=== PATIENT | male | born 1945 | race Caucasian/White ===

== ENCOUNTER 2020-12-01 15:34 | Emergency (ER) | payer MEDICARE ==
[~2020-12-01 15:34] MED LIST: ASPI81TA85 PO; AUGM12SS PO; BACT800T5 PO; EXCETAB80 PO; LORTTAB5 PO; [UNRECOGNIZED DRUG - OTHER]
[2020-12-01] MEDS ORDERED: EPINEPHrine 1MG/10ML SYRINGE 1.5IN ONE (15:35)
[2020-12-01] MEDS ORDERED: PROPOFOL 1,000 MG/100 ML VIAL As Ordered ONE (15:46)
[2020-12-01] MEDS ORDERED: LIDOCAINE 2% 5ML JELLY UROJET TOP ONE (15:55)
[2020-12-01] MEDS ORDERED: propofoL 1,000 MG in IV 1 EA IV SCH ×2 (15:55→16:15)
[2020-12-01] MEDS ORDERED: AMIODARONE HCL 360 MG in IV 1 EA IV SCH (15:55)
[2020-12-01] MEDS ORDERED: propofoL 200 MG/20 ML VIAL IV ONE (15:55)
[2020-12-01] MEDS ORDERED: ETOMIDATE INJ 20MG/10ML VIAL IV ONE (15:55)
[2020-12-01] MEDS ORDERED: SUCCINYLCHOLINE INJ 200 MG/10 ML VIAL (J0330) IV ONE (15:55)
[2020-12-01] MEDS ORDERED: fentaNYL CITRATE 1,000 MCG in NS 80 ML IV SCH (16:15)
[2020-12-01 16:23] LABS: HEMATOCRIT 50.8 % (42.0-52.0); HEMOGLOBIN 15.3 g/dl (13.5-17.5); MEAN CORPUSCULAR HEMOGLOBIN 32.2 pg (27.0-33.0); MEAN CORPUSCULAR HGB CONC 30.1 g/dl (32.0-36.5); MEAN CORPUSCULAR VOLUME 106.9 fl (80.0-96.0); PLATELET COUNT, AUTOMATED 176 10^3/uL (150-450); RED BLOOD COUNT 4.75 10^6/uL (4.30-6.10); WHITE BLOOD COUNT 9.2 10^3/uL (4.0-10.0)
--- NOTE | 2020-12-01 16:24 | REP ---
INDICATION: ett adjustment. COMPARISON: 12/01/2020 3:49 p.m.. TECHNIQUE: Single portable AP view of the chest was performed. FINDINGS: Bibasilar parenchymal opacities are stable. The heart and mediastinum are unchanged. Nasogastric tube is seen with side port in the fundus of the stomach. Endotracheal tube is unchanged in position with the tip at the inferior margin of the clavicular heads. IMPRESSION: Stable lungs. Endotracheal tube and nasogastric tube as above. <Electronically signed by Richard Rosas > 12/01/20 [id number]
--- NOTE | 2020-12-01 16:26 | REP ---
INDICATION: CHEST PAIN. COMPARISON: 04/28/2012. TECHNIQUE: Single portable AP view of the chest was performed. FINDINGS: There is right basilar consolidation. I suspect mild interstitial infiltrate in the left base. There is a prominent right hilar shadow. The heart is upper limits of normal. Endotracheal tube is seen with the tip at the inferior margin of the clavicular heads, approximately 4 cm above the ata. Nasogastric tube traverses into the stomach. IMPRESSION: Right basilar consolidation. Possible right hilar adenopathy. Possible interstitial infiltrate left lung base. Endotracheal tube and nasogastric tube as above. <Electronically signed by Richard Rosas > 12/01/20 [id number]
[2020-12-01 16:34] LABS: INR 1.11; PROTHROMBIN TIME 14.7 SECONDS (12.7-14.5)
[2020-12-01 16:35] LABS: PARTIAL THROMBOPLASTIN TIME 44.5 SECONDS (25.9-37.0)
[2020-12-01] MEDS ORDERED: LevoFLOXacin IV 750 MG in IV 1 EA IV ONE (16:40)
[2020-12-01] MEDS ORDERED: NS 500 ML IV ONE (16:50)
[2020-12-01] MEDS ORDERED: MIDAZOLAM HCL 50 MG in D5W 40 ML IV SCH (16:55)
[2020-12-01 16:59] LABS: ATYPICAL LYMPH 9 % (0-5); BASOPHILS 1 % (0-1); EOSINOPHILS 1 % (0-3); LYMPHOCYTES 41 % (16-44); MONOCYTES 5 % (0-5); NEUTROPHILS 41 % (28-66)
[2020-12-01 17:00] LABS: ANISOCYTOSIS 1+; PLATELET ESTIMATE NORMAL (NORMAL); POIKILOCYTOSIS 1+
[2020-12-01] MEDS ORDERED: REFRIGERATOR IV KEYS XX PRN (17:00)
[2020-12-01] MEDS ORDERED: MIDAZOLAM HCL 100 MG in D5W 80 ML IV SCH (17:00)
[2020-12-01 17:01] LABS: OVALOCYTES 1+
[2020-12-01 17:20] LABS: RSV AMPLIFICATION NEGATIVE (NEGATIVE)
--- NOTE | 2020-12-01 17:22 | REPVR ---
PROCEDURE INFORMATION: Exam: CT Head Without Contrast Exam date and time: 12/01/2020 5:11 PM Age: 75 years old Clinical indication: Coma or unconsciousness; Additional info: Stat sp rosc TECHNIQUE: Imaging protocol: Computed tomography of the head without contrast. Radiation optimization: All CT scans at this facility use at least one of these dose optimization techniques: automated exposure control; mA and/or kV adjustment per patient size (includes targeted exams where dose is matched to clinical indication); or iterative reconstruction. COMPARISON: No relevant prior studies available. FINDINGS: Brain: No intracranial mass, mass effect or midline shift. No acute intracranial hemorrhage. No CT evidence of acute cortical infarct. Ventricles, cisterns, and sulci are normal in size for age. Paranasal sinuses: Imaged paranasal sinuses are normally aerated. Mastoid air cells: Mastoid air cells and middle ear structures are normally aerated. Orbital cavity: Imaged orbits are unremarkable. Bones/joints: No calvarial fracture or destructive process. Soft tissues: No focal extracranial soft tissue swelling. IMPRESSION: No acute or concerning focal intracranial abnormality. Electronically signed by: Asaf Pack On 12/01/2020 17:22:27 PM
[2020-12-01] MEDS ORDERED: NOREPINEPHRINE BITARTRATE 8 MG in D5W 500 ML IV SCH (17:45)
[2020-12-01] MEDS ORDERED: PANTOPRAZOLE 40MG VIAL (C9113 PER 1) IV ONE (17:45)
[2020-12-01] MEDS ORDERED: NOREPINEPHRINE BITARTRATE 8 MG in D5W 492 ML IV SCH (17:45)
[2020-12-01 18:20] VITALS: BP 83/45
[2020-12-01 19:21] LABS: ALBUMIN 3.1 GM/DL (3.2-5.2); BILIRUBIN,DIRECT 0.1 MG/DL (0.0-0.2); BILIRUBIN,TOTAL 0.9 MG/DL (0.2-1.0); CALCIUM LEVEL 7.7 MG/DL (8.8-10.2); CK-MB VALUE MASS 27.1 NG/ML (<3.6); CREATININE FOR GFR 1.29 MG/DL (0.70-1.30); FREE T4 0.97 NG/DL (0.76-1.46); MAGNESIUM LEVEL 2.1 MG/DL (1.8-2.4); MB/CK RELATIVE INDEX 4.26 (< OR =4); PHOSPHORUS LEVEL 5.7 MG/DL (2.5-4.9); POTASSIUM SERUM 4.8 MEQ/L (3.5-5.1); THYROID STIMULATING HORMONE 6.42 uIU/ML (0.358-3.740); TOTAL PROTEIN 6.6 GM/DL (6.4-8.2); TROPONIN I 1.7 NG/ML (< 0.10)
--- NOTE | 2020-12-01 19:58 | ECGEPIP ---
[facility] - ED Test Date: 2020-12-01 Pat Name: JAROD STOLL Department: Room: - Gender: Male Mailing Machine Operator: CARMELO : 1945 Requested By: Eboni Fernandez Order Number: [id number] Reading MD: Reyes Magallanes Measurements Intervals [place] Rate: 99 P: ME: QRS: 109 QRSD: 170 T: -54 QT: 362 QTc: 464 Interpretive Statements Atrial fibrillation with premature ventricular or aberrantly conducted complexes Rightward axis Nonspecific intraventricular block Inferior infarct , age undetermined Comparison tracing not on file Electronically Signed on 12-01-2020 19:58:06 EDT by Reyes Magallanes
--- NOTE | 2020-12-01 20:03 | ECGEPIP ---
[facility] - ED Test Date: 2020-12-01 Pat Name: JAROD STOLL Department: Room: - Gender: Male Kennel Technician: CARMELO : 1945 Requested By: Eboni Fernandez Order Number: [id number] Reading MD: Reyes Magallanes Measurements Intervals [place] Rate: 70 P: 50 UT: 156 QRS: 68 QRSD: 130 T: 128 QT: 428 QTc: 462 Interpretive Statements Sinus rhythm with sinus arrythmia Nonspecific intraventricular block Nonspecific ST-T wave abnormalities rhythm change from tracing done [id number] on same date Electronically Signed on 12-01-2020 20:03:17 EDT by Reyes Magallanes
== END 2020-12-01 18:40 | disposition short-term general hospital (02) ==
LOC: M ED 15:34
DX: I46.9 Cardiac arrest, cause unspecified (principal); I49.01 Ventricular fibrillation; I10 Essential (primary) hypertension; Z79.82 Long term (current) use of aspirin; Z79.899 Other long term (current) drug therapy
CPT/HCPCS: 31500; 36415; 36600; 51702; 70450; 71045; 80047; 80048; 80076; 81001; 82150; 82550; 82553; 82803; 83605; 83690; 83735; 83880; 84100; 84439; 84443; 84484; 85025; 85379; 85610; 85730; 87040; 87086; 87631; 92950; 93005; 93041; 96361; 96365; 96368; 96375; 99285; J0282; J0330; J2250